=== PATIENT | female | born 1955 | race Caucasian/White ===

== ENCOUNTER 2024-10-08 06:18 | Day surgery (SDC) | payer MEDICARE, SELFPAY | END 2024-10-08 11:28 | disposition home or self-care (01) | LOC: GI 06:18 | PROVIDERS: ATTENDING PHYSICIAN Internal Medicine | DX: K64.8 Other hemorrhoids (principal); D50.9 Iron deficiency anemia, unspecified; K57.30 Diverticulosis of large intestine without perforation or abscess without bleeding; Z53.8 Procedure and treatment not carried out for other reasons; Z98.0 Intestinal bypass and anastomosis status | CPT/HCPCS: 45378; 43239; 88305; 88342 ==

== ENCOUNTER 2024-10-13 09:28 | Outpatient (RCR) | payer MEDICARE, SELFPAY ==
[2024-09-18] MEDS: VENOFER 110 MG IV (10:11)
[2024-09-18 10:32] VITALS: BP 129/60
[2024-09-18 11:38] VITALS: BP 132/61
[2024-10-02 11:54] VITALS: BP 131/66
[2024-10-02] MEDS: VENOFER 110 MG IV (11:58)
[2024-10-02 13:30] VITALS: BP 138/61
[2024-10-06 10:45] VITALS: BP 149/69
[2024-10-06] MEDS: VENOFER 110 MG IV (10:51)
[2024-10-06 12:07] VITALS: BP 147/81
[2024-10-13 09:55] VITALS: BP 146/75
[2024-10-13] MEDS: VENOFER 110 MG IV (10:04)
[2024-10-13 11:15] VITALS: BP 135/76
== END 2024-10-14 09:46 | disposition home or self-care (01) ==
LOC: OID 09:28
PROVIDERS: ATTENDING PHYSICIAN Internal Medicine; FAMILY PHYSICIAN Family Medicine
DX: D50.9 Iron deficiency anemia, unspecified (principal); K21.9 Gastro-esophageal reflux disease without esophagitis
CPT/HCPCS: 96365; J1756

== ENCOUNTER 2024-10-21 10:10 | Outpatient (RCR) | payer MEDICARE, SELFPAY ==
[2024-10-21] MEDS: VENOFER 110 MG IV (11:09)
[2024-10-21 11:15] VITALS: BP 130/76
[2024-10-21 12:12] VITALS: BP 134/69
== END 2024-10-22 11:03 | disposition home or self-care (01) ==
LOC: OID 10:10
PROVIDERS: ATTENDING PHYSICIAN Internal Medicine; FAMILY PHYSICIAN Family Medicine
DX: D50.9 Iron deficiency anemia, unspecified (principal); K21.9 Gastro-esophageal reflux disease without esophagitis
CPT/HCPCS: 96365; J1756

== ENCOUNTER → 2024-11-27 16:12 | Outpatient (REF) | payer MEDICARE, SELFPAY | LOC: RAD 16:12 | PROVIDERS: ATTENDING PHYSICIAN Emergency Medicine | DX: S09.90XA Unspecified injury of head, initial encounter (principal); S00.83XA Contusion of other part of head, initial encounter; R51.9 Headache, unspecified | CPT/HCPCS: 70450 ==